=== PATIENT | male | born 1995 | race Caucasian/White ===

== ENCOUNTER 2019-11-30 17:18 | Emergency (ER) | payer BC, SELFPAY ==
--- NOTE | 2019-11-30 17:47 | ED.SKABFB ---
HPI - Skin/Abscess/Foreign Bdy General Chief complaint: Wound/Laceration Stated complaint: manasa removal Time Seen by Provider: 11/30/19 17:47 Source: patient and RN notes reviewed History of Present Illness HPI narrative: Patient is a 24-year-old male who presents the urgent care with request to have his manasa removed from his head laceration. Patient states that this is day 8 with the manasa. States that last week he dove into a marcus and hit his head on a large rock. Patient denies any loss of consciousness or other injuries. Patient states he has been washing the area twice a day as directed from the ER physician at [facility]. Patient has also been taking oral antibiotics for the laceration. Denies of any other acute complaints. No acute distress noted. Patient read the plan of care. Related Data Allergies Allergy/AdvReac Type Severity Reaction Status Date / Time No Known Allergies Allergy Mild Unverified 12/14/08 17:09 Review of Systems Review of Systems: Narrative: CONSTITUTIONAL: Denies fever, chills, or sweats. EYES: Denies visual changes, redness, or discharge. ENT: Denies rhinorrhea, congestion, sore throat, or otalgia. CARDIOVASCULAR: Denies chest pain, palpitations, or edema. RESPIRATORY: Denies cough or dyspnea. GASTROINTESTINAL: Denies abdominal pain, nausea, vomiting, or diarrhea. GENITOURINARY: Denies dysuria or hematuria. SKIN: Reports of needing staple removal to a head laceration MUSCULOSKELETAL: Denies back pain, joint pain, or myalgia. NEUROLOGIC: Denies headache, numbness, or weakness. All other systems reviewed are negative, except as documented in HPI. PMFSH Comments At the time of my signature, I reviewed and agree with the nursing past medical, surgical, social, and family history. There is no relevant family history pertinent to the patient complaint. Exam Narrative: Exam Narrative: GENERAL: This is a well-nourished, well-developed patient, in no apparent distress. HEAD: normocephalic, atraumatic. EYES: PERRL. Sclera clear/white. Vision is grossly intact. EARS: External ears normal NOSE: External nose normal with no obvious nasal discharge, nares without redness, no rhinorrhea. THROAT: Mucous membranes moist NECK: Neck supple SKIN: 4 cm half-modoc closed, healing, scabbed laceration approximated with 14 manasa to the peak of the head/forehead NEURO: awake, alert, and oriented to person, place and time. There were no obvious focal neurologic abnormalities. EXTREMITIES: No clubbing, cyanosis, or edema. Course Vital Signs Vital signs: Vital Signs Temperature 98.7 F 11/30/19 18:03 Pulse Rate 96 11/30/19 18:03 Respiratory Rate 16 11/30/19 18:03 Blood Pressure 108/65 11/30/19 18:03 Pulse Oximetry 96 11/30/19 18:03 Temperature 98.7 F 11/30/19 18:03 Pulse Rate 96 11/30/19 18:03 Respiratory Rate 16 11/30/19 18:03 Blood Pressure 108/65 11/30/19 18:03 Pulse Oximetry 96 11/30/19 18:03 Reviewed MDM - Skin/Abscess/Foreign Bdy MDM Narrative Medical decision making narrative: Advised the patient to continue washing the area as directed. Do not attempt to squeeze on the wound or remove the scab. Use prescription ointment to the laceration twice a day. Complete oral antibiotic regimen as prescribed from your initial visit. If you develop any increase in drainage from the wound, fever, nausea, redness or swelling?go to the emergency room. Follow-up with your PCP within 2 to 5 days or for worsening symptoms or failure to improve. Differential Diagnosis Differential diagnosis: Likely abscess of skin or subcutaneous tissue, cellulitis and impetigo Critical Care Time Critical Care Time Critical Care Time: No Discharge Plan Discharge Clinical Impression: Encounter for staple removal Patient Disposition: Home, Self-Care Condition: Stable Instructions: Antibiotic Form, Acute Wounds (DC) Additional Instructions: Advised the patient to continue washing the
[2019-11-30 18:03] VITALS: BP 108/65; PULSE 96; RESP 16; TEMP 37.1; O2SAT 96
== END 2019-11-30 18:13 | disposition home or self-care (01) ==
PROVIDERS: Emergency Provider Nurse Practitioner Family
DX: S01.81XA Laceration without foreign body of other part of head, initial encounter (principal); W22.8XXA Striking against or struck by other objects, initial encounter
CPT/HCPCS: 99213; G0463

== ENCOUNTER 2022-01-04 10:31 | Emergency (ER) | payer OTHER, SELFPAY ==
--- NOTE | ~2022-01-04 | XR_ITS ---
XR foot RT min 3V, XR ankle RT min 3V 01/04/2022 10:56 INDICATION: Right foot and ankle pain after injury PROCEDURE: 4 views of the right foot and 4 views right ankle COMPARISON: No prior studies for comparison. FINDINGS: Fracture, dislocation or subluxation is not identified. Lisfranc joint intact. The soft tis sues appear within normal limits. No foreign bodies are identified. IMPRESSION: 1: NO ACUTE BONE OR JOINT ABNORMALITY IDENTIFIED. Reviewed, dictated and finalized at location A. IMPRESSION: 1: NO ACUTE BONE OR JOINT ABNORMALITY IDENTIFIED.
--- NOTE | 2022-01-04 10:49 | ED_ITS ---
HPI - Extremity Injury (Lower) General Chief Complaint: Extremity Injury, Lower Stated Complaint: foot Time Seen by Provider: 01/04/22 10:38 History of Present Illness HPI Narrative: 26-year-old male presented the emergency room for evaluation of right heel pain. Patient states he jumped off a lift, which was approximately 3 feet above the ground, landing directly on his right foot. Patient states that he immediately experienced pain to his right heel. Reports pain is worse with ambulation. No radiating pain. Related Data Allergies Allergy/AdvReac Type Severity Reaction Status Date / Time No Known Allergies Allergy Mild Verified 01/04/22 10:40 Review of Systems Review of Systems: CONSTITUTIONAL: Denies fever, chills, or sweats. EYES: Denies visual changes, redness, or discharge. ENT: Denies rhinorrhea, congestion, sore throat, or otalgia. CARDIOVASCULAR: Denies chest pain, palpitations, or edema. RESPIRATORY: Denies cough or dyspnea. GASTROINTESTINAL: Denies abdominal pain, nausea, vomiting, or diarrhea. GENITOURINARY: Denies dysuria or hematuria. SKIN: Denies rash or itching. MUSCULOSKELETAL: Reports right heel pain NEUROLOGIC: Denies headache, numbness, dizziness, or weakness. PSYCHIATRIC: Denies anxiety or depression. Exam Narrative: GENERAL: Well-appearing, well-nourished, no physical limitations, and in no acute distress. HEAD: Normocephalic, atraumatic. EYES: Conjunctivae normal, PERRLA and EOMI. CHEST: Clear to auscultation. No respiratory distress. No wheezes rales or rhonchi. No tenderness. HEART: Regular rate and rhythm. No murmur heard. Normal peripheral pulses. EXTREMITIES: Right heel: Tenderness to the anterior surface, no soft tissue swelling, no acute bony abnormality, no ecchymosis SKIN: Warm, dry, no rash. No noted wounds NEURO: No focal deficits. Alert and oriented x3. MAEW. CN's II-XI intact bilaterally, normal gait PSYCH: Cooperative. Normal mood and affect. Discharge Plan Discharge Clinical Impression: Contusion of heel Patient Disposition: Home, Self-Care Condition: Stable Instructions: Antibiotic Form Additional Instructions: Elevate extremity. May take Tylenol as needed. May apply ice to affected area for 15 minutes at a time for today and tomorrow with activity for the next 4 to 5 days. Prescriptions: New naproxen 500 mg tablet 500 mg PO BID Qty: 14 0RF No Action mupirocin 2 % ointment 1 applic TOPICAL BID Qty: 15 0RF Follow-up/Referrals: PHYSICIAN,NUT SORTER OPERATOR [Primary Care Provider] - Time of Disposition: 11:28
[2022-01-04] MEDS: KETOROLAC (*BKC) 60 MG/2 ML VIAL IM (11:32)
[2022-01-04 11:39] VITALS: PULSE 80; RESP 16; O2SAT 99
== END 2022-01-04 11:40 | disposition home or self-care (01) ==
PROVIDERS: Emergency Provider Nurse Practitioner Family
DX: S90.31XA Contusion of right foot, initial encounter (principal); Y93.39 Activity, other involving climbing, rappelling and jumping off
CPT/HCPCS: 73610; 73630; 96372; 99283; J1885

== ENCOUNTER 2022-02-17 17:09 | Emergency (ER) | payer OTHER, SELFPAY ==
--- NOTE | 2022-02-17 17:14 | ED.ABDPAIN ---
HPI - Abdominal Pain General Chief Complaint: Abdominal Pain Stated Complaint: Abdominal pains Time Seen by Provider: 02/17/22 17:14 Source: patient Mode of arrival: ambulatory Limitations: no limitations History of Present Illness HPI narrative: Mr. Pool is a 26-year-old male patient presenting to the clinic today with complaints of mid epigastric abdominal pain x3 days He reports that his pain is currently an 8 or 9 out of 10. Reports that the pain is worse right after eating. He says he is in a high stress and he does smoke cigarettes. He denies any alcohol use. He has had some nausea and vomiting with this. Last bowel movement was a few days ago. He denies any blood in his vomit or tarry stools. Denies having acid reflux but states that the pain is dull aching and gnawing in the mid epigastrium area. He has originally taken some Gas-X for this mildly subsided some of the discomfort. Related Data Home Medications Medication Instructions Recorded Confirmed No Home Medications 02/17/22 02/17/22 Allergies Allergy/AdvReac Type Severity Reaction Status Date / Time No Known Allergies Allergy Mild Verified 02/17/22 17:16 Review of Systems Review of Systems: Pertinent positives per HPI. Patient denies any fever, chills, rash, headache, visual changes, dizziness, cough, runny nose, sore throat, shortness of breath, chest pain, palpitations, diarrhea, constipation, or any urinary issues. PMFSH Comments At the time of my signature, I reviewed and agree with the nursing past medical, surgical, social, and family history. There is no relevant family history pertinent to the patient complaint. Exam Narrative: General: Well-developed, well nourished, in no apparent distress. Head: Normocephalic, atraumatic. Cardio: Regular rate and rhythm, s1 and s2 normal, no murmur appreciated. Resp: Clear to auscultation bilaterally, no rhonchi, rales, wheezing or rubs. Abdomen: Soft, pliable, hyperactive bowel sounds present in all quadrants, tender to palpation over the mid epigastrium, guarding over the mid epigastrium, no organomegly, no CVAT tenderness. Course Course Emergency Course: Portions of this record may have been created with voice recognition software. Level of Care: Express Care Visit Vital Signs Vital signs: Vital signs reviewed MDM - Abdominal Pain MDM Narrative Medical decision making narrative: At the time of visit patient is resting comfortably on the exam table. I suspect the patient has a gastritis versus peptic ulcer disease. Maalox 30 mL and 15 and viscous lidocaine given in the clinic and this did not really change the patient's pain still rating it 8-9 out of 10. Offered to send him to the ED for further evaluation to rule out pancreatitis, cholecystitis, or peptic ulcer. Contacted VALERIE Guerra at [facility] and report was given for continuity of care. Differential Diagnosis Differential diagnosis: Likely abdominal pain and other (Peptic ulcer, gastritis, pancreatitis, cholecystitis) Discharge Plan Discharge Clinical Impression: Peptic ulcer, Epigastric abdominal pain, Nausea & vomiting Patient Disposition: Acute Care Hospital Condition: Stable Additional Instructions: Increase fluids and stay well-hydrated Avoid eating fatty, greasy, spicy, acidic foods Eat a bland soft diet Take Protonix and sucralfate as prescribed Take Zofran as needed for nausea/vomiting Follow-up with your PCP in 3 to 5 days if symptoms persist. Recommend follow-up for further evaluation/testing-May need to have EGD to determine Prescriptions: No Action No Home Medications Follow-up/Referrals: UNKNOWN,DOCTOR [Primary Care Provider] - Time of Disposition: 18:04 Quality NIHSS Nursing Documentation ED NIHSS nursing documentation: reviewed/agree
[2022-02-17 17:25] VITALS: BP 114/70; PULSE 77; RESP 18; TEMP 36.4; O2SAT 100
[2022-02-17] MEDS: MAG HYDROX/AL HYDROX/SIMETH 30 ML UDC PO (17:44)
[2022-02-17] MEDS: LIDOCAINE HCL 2% VISC SOLN 15 ML UDC PO (17:45)
== END 2022-02-17 18:02 | disposition short-term general hospital (02) ==
PROVIDERS: Emergency Provider Nurse Practitioner Family
DX: K27.9 Peptic ulcer, site unspecified, unspecified as acute or chronic, without hemorrhage or perforation (principal); R10.13 Epigastric pain; R11.2 Nausea with vomiting, unspecified
CPT/HCPCS: 99213; A9270; G0463

== ENCOUNTER 2022-02-17 18:17 | Emergency (ER) | payer OTHER, SELFPAY ==
--- NOTE | ~2022-02-17 | CT_ITS ---
EXAMINATION: CT abdomen pelvis w con DATE: 02/17/2022 19:18 INDICATION: upper abd pain TECHNIQUE: Computed tomography (CT) of the abdomen and pelvis was performed with 100 mL Omnipaque-350 intravenous contrast. Automated exposure control and iterative reconstruction technique were employe d. The dose-length product was 418.97 mGy-cm. COMPARISON: None. FINDINGS: Lower thorax: Unremarkable Liver: Normal. Biliary/Gallbladder: No bile duct dilation. Pancreas: No mass or duct dilation. Spleen: Normal. Adrenals:No mass. Kidneys: No suspicious mass, stone, or hydronephrosis. Left lower pole hypodensity, too small to keara acterize but most likely represents a cyst. GI tract: No small or large bowel dilation. Normal appendix. Mesentery/Peritoneum: No ascites, mass, or free air. Retroperitoneum: No mass. Pelvis: Pelvic organs are within normal limits. Soft Tissues: Soft tissues and body wall unremarkable. Bones: No acute osseous finding. IMPRESSION: No acute abdominopelvic process detected. Reviewed, dictated and finalized at location K.
[2022-02-17 18:28] VITALS: BP 122/71; PULSE 71; RESP 16; TEMP 36.8; O2SAT 99
--- NOTE | 2022-02-17 18:39 | ED.ABDPAIN ---
HPI - Abdominal Pain General Chief Complaint: Abdominal Pain Stated Complaint: abdominal pain Time Seen by Provider: 02/17/22 18:33 History of Present Illness HPI narrative: 26-year-old male presents the emergency room complaints of epigastric pain for 2 days. Patient describes the pain as a sharp stabbing pain that is not alleviated by anything. Patient states the pain is worse after eating. Denies any fevers. Is accompanied with nausea. Denies any diarrhea. Also complains of not having a bowel movement in the last 48 hours. Patient was seen in urgent care and was given a GI cocktail which did not alleviate his symptoms. Related Data Allergies Allergy/AdvReac Type Severity Reaction Status Date / Time No Known Allergies Allergy Mild Verified 02/17/22 18:30 Review of Systems Review of Systems: CONSTITUTIONAL: Denies fever, chills, or sweats. EYES: Denies visual changes, redness, or discharge. ENT: Denies rhinorrhea, congestion, sore throat, or otalgia. CARDIOVASCULAR: Denies chest pain, palpitations, or edema. RESPIRATORY: Denies cough or dyspnea. GASTROINTESTINAL: Reports abdominal pain, nausea, constipation alert and GENITOURINARY: Denies dysuria or hematuria. SKIN: Denies rash or itching. MUSCULOSKELETAL: Denies back pain, joint pain, or myalgia. NEUROLOGIC: Denies headache, numbness, dizziness, or weakness. PSYCHIATRIC: Denies anxiety or depression. Exam Narrative: GENERAL: Well-appearing, well-nourished, no physical limitations, and in no acute distress. HEAD: Normocephalic, atraumatic. EYES: Conjunctivae normal, PERRLA and EOMI. CHEST: Clear to auscultation. No respiratory distress. No wheezes rales or rhonchi. No tenderness. HEART: Regular rate and rhythm. No murmur heard. Normal peripheral pulses. ABDOMEN: Soft, periumbilical tenderness, nondistended, normal active bowel sounds. EXTREMITIES: Normal range of motion. No edema. No clubbing or cyanosis SKIN: Warm, dry, no rash. No noted wounds NEURO: No focal deficits. Alert and oriented x3. MAEW. CN's II-XI intact bilaterally, normal gait PSYCH: Cooperative. Normal mood and affect. Course Vital Signs Vital signs: Vital Signs Temperature 36.8 C 02/17/22 18:28 Pulse Rate 71 02/17/22 18:28 Respiratory Rate 16 02/17/22 18:28 Blood Pressure 122/71 02/17/22 18:28 Pulse Oximetry 99 02/17/22 18:28 Temperature 36.8 C 02/17/22 18:28 Pulse Rate 83 02/17/22 19:16 Respiratory Rate 16 02/17/22 19:16 Blood Pressure 116/72 02/17/22 19:16 Pulse Oximetry 98 02/17/22 19:16 MDM - Abdominal Pain Medical Records Medical records narrative: 26-year-old male presented the emergency room complaints of periumbilical and upper abdominal pain. Patient states that he has been nauseated and has not eaten since yesterday. Patient is complaining of nausea and constipation for [address] scan shows no acute intra-abdominal abnormality. CBC and CMP are unremarkable. Cause of patient's abdominal pain is likely constipation. Lab Data Result diagrams: 02/17/22 18:41 02/17/22 18:41 Labs: Lab Results 02/17/22 02/17/22 02/17/22 Range/Units 18:41 18:41 19:07 WBC 10.4 H (4.5-10.0) K/mm3 RBC 4.46 L (4.6-6.20) M/mm3 Hgb 14.0 (14.0-18.0) g/dL Hct 42.0 (42.0-52.0) % MCV 94.2 (80-100) fl MCH 31.4 (26-34) pg MCHC 33.3 (32-36) g/dl RDW 13.8 (11.5-14.5) % Plt Count 198 (150-375) k/mm3 MPV 9.4 (7.4-10.4) fl Immature Gran % (Auto) 0.3 (0-0.5) % Neut % (Auto) 75.5 H (45.5-73.1) % Lymph % (Auto) 17.6 L (18.3-44.2) % Tucker % (Auto) 5.9 (2.6-8.5) % Eos % (Auto) 0.4 (0-4.4) % Baso % (Auto) 0.3 (0.2-1.2) % Lymph # (Auto) 1.83 (0.9-3.2) K/mm3 Tucker # (Auto) 0.6 (0.1-0.6) K/mm3 Eos # (Auto) 0.0 (0-0.3) K/mm3 Baso # (Auto) 0.0 (0.0-0.1) K/mm3 Abs Immat Gran (auto) 0.03 (0.00-0.031) K/mm3 Absolute Neuts (auto) 7.9 H (1.3-6.7)
[2022-02-17] MEDS: SODIUM CHLORIDE 0.9% IV 1,000 ML 999 ML IV CONT (18:43)
[2022-02-17] MEDS: ONDANSETRON INJ 4 MG/2 ML VIAL IV PUSH (18:44)
[2022-02-17] MEDS: MORPHINE SULFATE (*CRX) 4 MG/ML INJ IV PUSH (18:44)
[2022-02-17 18:46] LABS: Basophils Percent Auto 0.3 % (0.2-1.2); Eosinophils Percent Auto 0.4 % (0-4.4); Immature Granulocyte Absolute 0.03 K/mm3 (0.00-0.031); Immature Granulocyte Percent A 0.3 % (0-0.5); Lymphocytes Absolute Auto 1.83 K/mm3 (0.9-3.2); Lymphocytes Percent Auto 17.6 % (18.3-44.2); Mean Corpuscular HGB Conc 33.3 g/dl (32-36); Mean Corpuscular Hemoglobin 31.4 pg (26-34); Mean Corpuscular Volume 94.2 fl (80-100); Mean Platelet Volume 9.4 fl (7.4-10.4); Monocytes Absolute Auto 0.6 K/mm3 (0.1-0.6); Monocytes Percent Auto 5.9 % (2.6-8.5); Neutrophils Absolute Auto 7.9 K/mm3 (1.3-6.7); Neutrophils Percent Auto 75.5 % (45.5-73.1); Platelet Count Result 198 k/mm3 (150-375); Red Blood Count 4.46 M/mm3 (4.6-6.20); Red Cell Distribution Width 13.8 % (11.5-14.5); White Blood Count 10.4 K/mm3 (4.5-10.0)
[2022-02-17 18:56] LABS: Alanine Aminotransferase 15 U/L (6-50); Albumin Level 4.6 g/dL (3.5-5.1); Alkaline Phosphatase 76 U/L (38-126); Anion Gap 8 mmol/L (8-16); Aspartate Amino Transferase 22 U/L (17-59); Blood Urea Nitrogen 13 mg/dL (9-20); Calcium 8.9 mg/dL (8.4-10.2); Carbon Dioxide 27 mmol/L (22-30); Chloride 103 mmol/L (98-107); Estimated CRCL calculation 115 ml/min; Estimated Glomerular Filt Rate > 60; Glucose 108 mg/dL (65-110); Lipase 29 U/L (23-300); Potassium 4.2 mmol/L (3.4-5.0); Sodium 138 mmol/L (137-145)
[2022-02-17 19:12] LABS: Appearance Urine Cloudy (Clear); Bilirubin Urine 1+ (Negative); Blood Urine Negative (Negative); Color Urine Yellow (Yellow); Glucose Urine UA Negative (Negative); Ketones Urine 1+ mg/dL (Negative); Leukocyte Esterase Ur Negative LEU/UL (Negative); Nitrate Urine Negative (Negative); Protein Urine Trace mg/dL (Negative); Specific Grav Ur 1.025 (1.001-1.035)
[2022-02-17 19:16] VITALS: BP 116/72; PULSE 83; RESP 16; O2SAT 98
[2022-02-17 19:16] LABS: Amorphous Sediment Urine Moderate; Mucus Urine Rare /lpf; WBC Urine 0-3 /hpf
--- NOTE | 2022-02-17 19:16 | PC.NURSE ---
Assumed care of pt at this time. Pt alert and upright on stretcher, updated on POC.
[2022-02-17 19:17] LABS: Add Urine Microscopic? YES
[2022-02-17 20:09] VITALS: BP 111/66; PULSE 72; RESP 18; O2SAT 98
== END 2022-02-17 20:10 | disposition home or self-care (01) ==
PROVIDERS: Emergency Medicine; Emergency Provider Nurse Practitioner Family
DX: K59.00 Constipation, unspecified (principal); R11.0 Nausea
CPT/HCPCS: 36415; 74177; 80053; 81001; 83690; 85025; 96361; 96374; 96375; 99284; J2270; J2405; J7030; Q9967

== ENCOUNTER 2023-03-18 19:04 | Emergency (ER) | payer SELFPAY ==
[2023-03-18 19:18] VITALS: BP 107/61; PULSE 97; RESP 16; TEMP 37.3; O2SAT 100
--- NOTE | 2023-03-18 19:25 | ED.SKABFB ---
HPI - Skin/Abscess/Foreign Bdy General Chief complaint: Skin/Abscess/Foreign Body Stated complaint: Bump Lt Leg Time Seen by Provider: 03/18/23 19:25 Source: patient Mode of arrival: ambulatory Limitations: no limitations History of Present Illness HPI narrative: 27-year-old male presents with complaint of red bump to left willis that started yesterday and is getting progressively worse. Concern for spider bite. Afebrile. Denies nausea vomiting diarrhea. No body aches or chills. All systems reviewed and negative except as noted above. Related Data Allergies Allergy/AdvReac Type Severity Reaction Status Date / Time No Known Allergies Allergy Mild Verified 03/18/23 19:20 Review of Systems Review of Systems: CONSTITUTIONAL: Denies fever, chills, or sweats. EYES: Denies visual changes, redness, or discharge. ENT: Denies rhinorrhea, congestion, sore throat, or otalgia. CARDIOVASCULAR: Denies chest pain, palpitations, or edema. RESPIRATORY: Denies cough or dyspnea. GASTROINTESTINAL: Denies abdominal pain, nausea, vomiting, or diarrhea. GENITOURINARY: Denies dysuria or hematuria. SKIN: Reports red bump to left willis. MUSCULOSKELETAL: Denies back pain, joint pain, or myalgia. NEUROLOGIC: Denies headache, numbness, or weakness. PSYCHIATRIC: Denies anxiety or depression. All other systems reviewed are negative, except as documented in HPI. PMFSH Comments At time of signature, agree with nursing past medical, surgical, social and family history. There is no relevant family history pertinent to the presenting complaint. Exam Narrative: GENERAL: This is a well-nourished, well-developed patient, in no apparent distress. HEAD: normocephalic, atraumatic. EYES: PERRL. Sclera clear/white. Vision is grossly intact. EARS: External ears normal NOSE: External nose normal NECK: Neck supple, non-tender without lymphadenopathy, masses or thyromegaly. CARDIOVASCULAR: Regular rate and rhythm without murmurs, gallops, or rubs. RESPIRATORY: Clear to auscultation. Breath sounds equal bilaterally. No wheezes, rales, or rhonchi. SKIN: warm, Dry, intact with no suspicious lesions or rash, good texture and turgor. Erythema and swelling to left lower willis. Warm on palpation. Erythema is approximately 4 x 6 cm. States tiny blister to Center concerning for insect bite. NEURO: awake, alert, and oriented to person, place and time. There were no obvious focal neurologic abnormalities. EXTREMITIES: No joint tenderness, effusion, or edema noted. Course Course Level of Care: Express Care Visit Vital Signs Vital signs: Vital Signs Temperature 37.3 C 03/18/23 19:18 Pulse Rate 97 03/18/23 19:18 Respiratory Rate 16 03/18/23 19:18 Blood Pressure 107/61 03/18/23 19:18 Pulse Oximetry 100 03/18/23 19:18 Oxygen Delivery Room Air 03/18/23 19:18 Temperature 37.3 C 03/18/23 19:18 Pulse Rate 97 03/18/23 19:18 Respiratory Rate 16 03/18/23 19:18 Blood Pressure 107/61 03/18/23 19:18 Pulse Oximetry 100 03/18/23 19:18 Oxygen Delivery Room Air 03/18/23 19:18 Reviewed MDM - Skin/Abscess/Foreign Bdy MDM Narrative Medical decision making narrative: Patient is aware of diagnosis, understands and agrees to treatment plan. Anticipatory guidance given. Patient agrees to follow-up as directed and is aware of reasons to seek care at the emergency department. Portions of this record may have been created with voice recognition software Differential Diagnosis Differential diagnosis: Likely insect bites Discharge Plan Discharge Clinical Impression: Infected insect bite of left lower extremity Qualifiers: Encounter type: initial encounter Qualified Code(s): S80.862A - Insect bite (nonvenomous), left lower leg, initial encounter Patient Disposition: Home, Self-Care Condition: Stable Instructions: Antibiotic Form, Insect Bite or Sting (ED) Additional Instructions: Take medications as pre
== END 2023-03-18 19:31 | disposition home or self-care (01) ==
PROVIDERS: Emergency Provider Nurse Practitioner Family
DX: S80.862A Insect bite (nonvenomous), left lower leg, initial encounter (principal); W57.XXXA Bitten or stung by nonvenomous insect and other nonvenomous arthropods, initial encounter
CPT/HCPCS: 99213; G0463

== ENCOUNTER 2023-04-02 18:56 | Emergency (ER) | payer OTHER, SELFPAY ==
[2023-04-02 19:12] VITALS: BP 109/55; PULSE 81; RESP 16; TEMP 36.9; O2SAT 97
--- NOTE | 2023-04-02 19:15 | ED.WOUNDLAC ---
HPI - Wound/Laceration General Chief Complaint: Wound/Laceration Stated Complaint: suture removal Time Seen by Provider: 04/02/23 19:15 Source: patient Mode of arrival: ambulatory Limitations: no limitations History of Present Illness HPI narrative: 27-year-old male presented for suture removal. Patient had sutures placed to his forehead 5 days ago at outside hospital after striking his head on a jeep frame. He denies any complications or signs of infection. Related Data Allergies Allergy/AdvReac Type Severity Reaction Status Date / Time No Known Allergies Allergy Mild Verified 03/18/23 19:20 Review of Systems Review of Systems: CONSTITUTIONAL: Denies body aches, fever, chills, or sweats. EYES: Denies visual changes, redness, or discharge. ENT: Denies rhinorrhea, congestion CARDIOVASCULAR: Denies chest pain, palpitations, or edema. RESPIRATORY: Denies cough or dyspnea. GASTROINTESTINAL: Denies abdominal pain, nausea, vomiting, or diarrhea. SKIN: Report sutures to forehead MUSCULOSKELETAL: Denies back pain, joint pain, or myalgia. NEUROLOGIC: Denies headache, numbness, tingling, or weakness. [facility] Past Medical History Medical History (Updated 04/02/23 @ 19:24 by Briana Arboleda, CARROLL) No pertinent past medical history Comments At time of signature, I have reviewed and agree with nursing past medical, surgical, social and family history unless otherwise noted. Please see nursing chart for further information. There is no relevant family history pertinent to the presenting complaint Exam Narrative: GENERAL: Well-appearing HEAD: Normocephalic, atraumatic. EYES: conjunctivae clear, and EOMI. ENT: Mucous membranes moist. Oropharynx without edema, erythema or lesions. NECK: Supple. No lymphadenopathy CHEST: Clear to auscultation. HEART: Regular rate and rhythm. SKIN: Warm, dry. Six sutures to irregular healing laceration to the mid forehead scab to the left lateral aspect. No surrounding erythema, induration or signs of infection. Wound is healing well, edges approximated, no drainage. NEURO: Alert and oriented x3. Course Course Emergency Course: Patient is aware of diagnosis, understands and agrees to treatment plan. Anticipatory guidance given. Patient agrees to follow-up as directed and is aware of reasons to seek care at the emergency department. Portions of this record may have been created with voice recognition software Level of Care: Express Care Visit Vital Signs Vital signs: Vital Signs Temperature 98.5 F 04/02/23 19:12 Pulse Rate 81 04/02/23 19:12 Respiratory Rate 16 04/02/23 19:12 Blood Pressure 109/55 L 04/02/23 19:12 Pulse Oximetry 97 04/02/23 19:12 Oxygen Delivery Room Air 04/02/23 19:12 Temperature 98.5 F 04/02/23 19:12 Pulse Rate 81 04/02/23 19:12 Respiratory Rate 16 04/02/23 19:12 Blood Pressure 109/55 L 04/02/23 19:12 Pulse Oximetry 97 04/02/23 19:12 Oxygen Delivery Room Air 04/02/23 19:12 Reviewed Procedures Other Procedure Procedure 1: Other Procedure: Six sutures removed from the forehead laceration. The site has healed well, edges approximate, no drainage. Advised to leave the scab intact. No signs of infection. Patient tolerated well. MDM - Wound/Laceration MDM Narrative Medical decision making narrative: Discussed physical exam findings. Discussed physical exam findings. Advised supportive measures and signs/symptoms to go to the ER. Pt is appropriate for outpt treatment and f/u. Differential Diagnosis Differential diagnosis: Likely laceration, abscess, abrasion, avulsion of skin and other (Suture removal) Discharge Plan Discharge Clinical Impression: Encounter for removal of sutures Patient Disposition: Home, Self-Care Condition: Stable Instructions: Antibiotic Form, Acute Wounds (ED) Additional Instructions: Keep the area clean and dry - gently cleanse with warm water and mild soap
== END 2023-04-02 19:27 | disposition home or self-care (01) ==
PROVIDERS: Emergency Provider Nurse Practitioner Family
DX: Z48.02 Encounter for removal of sutures (principal)
CPT/HCPCS: 99211; G0463

== ENCOUNTER 2023-06-19 09:24 | Emergency (ER) | payer OTHER, SELFPAY ==
[2023-06-19 09:38] VITALS: BP 106/63; PULSE 84; RESP 20; TEMP 36.3; O2SAT 100
--- NOTE | 2023-06-19 10:00 | ED.URI ---
HPI - URI/Sore Throat General Chief Complaint: Upper Respiratory Infection Stated Complaint: Bodyaches/Chills Time Seen by Provider: 06/19/23 09:53 Source: patient and RN notes reviewed Mode of arrival: ambulatory Limitations: no limitations History of Present Illness HPI Narrative: Patient presents today with a 2 day history of body aches, chills, headache, cough. Denies fever, shortness of breath, chest pain. He has been taking Tylenol without relief and currently rates his pain 6/10. No history of asthma or COPD. Smokes 1 pack per day. He has not been vaccinated against COVID. Related Data Home Medications Medication Instructions Recorded Confirmed No Home Medications 06/19/23 06/19/23 Allergies Allergy/AdvReac Type Severity Reaction Status Date / Time No Known Allergies Allergy Mild Verified 06/19/23 09:34 Review of Systems Review of Systems: CONSTITUTIONAL: Denies fever, or sweats.+ body aches, chills EYES: Denies visual changes, redness, or discharge. ENT: Denies rhinorrhea, congestion, sore throat, or otalgia. CARDIOVASCULAR: Denies chest pain, palpitations, or edema. RESPIRATORY: Denies dyspnea.+ cough GASTROINTESTINAL: Denies abdominal pain, nausea, vomiting, or diarrhea. GENITOURINARY: Denies dysuria or hematuria. SKIN: Denies rash, itching, or wounds. MUSCULOSKELETAL: Denies back pain, joint pain, or myalgia. NEUROLOGIC: Denies numbness, tingling, or weakness.+ headache PSYCH: Denies depression or anxiety. PMFSH Past Medical History Medical History No pertinent past medical history Social History Social History (Updated 06/19/23 @ 10:02 by Yadira Saravia, [facility], ) Smoking packs per day: 1 Smoking cigarettes per day: 20.0 Smoking status: Current every day smoker Tobacco type: cigarettes Comments At time of signature, I have reviewed and agree with nursing past medical, surgical, social and family history unless otherwise noted. Please see nursing chart for further information. There is no relevant family history pertinent to the presenting complaint Exam Narrative: GENERAL: Well-appearing, well-nourished, and in no acute distress. HEAD: Normocephalic, atraumatic. EYES: EOMI. No redness or drainage. Conjunctivae normal. ENT: Mucous membranes pink and moist. Nares clear. No rhinorrhea. TMs normal bilaterally. Throat mildly erythematous without edema or exudate. Uvula midline. NECK: Normal AROM. Supple. No lymphadenopathy. CHEST: No respiratory distress. Clear to auscultation. HEART: Regular rate and rhythm. No murmur appreciated. EXTREMITIES: Normal range of motion. No edema. SKIN: Warm, dry, no rash. Capillary refill normal. Normal skin turgor. NEURO: No focal deficits. Alert and oriented x3. Gait steady. PSYCH: Normal affect. No signs of depression or anxiety. Course Course Level of Care: Express Care Visit Vital Signs Vital signs: Vital Signs Temperature 97.4 F L 06/19/23 09:38 Pulse Rate 84 06/19/23 09:38 Respiratory Rate 20 06/19/23 09:38 Blood Pressure 106/63 06/19/23 09:38 Pulse Oximetry 100 06/19/23 09:38 Oxygen Delivery Room Air 06/19/23 09:38 Temperature 97.4 F L 06/19/23 09:38 Pulse Rate 84 06/19/23 09:38 Respiratory Rate 20 06/19/23 09:38 Blood Pressure 106/63 06/19/23 09:38 Pulse Oximetry 100 06/19/23 09:38 Oxygen Delivery Room Air 06/19/23 09:38 Reviewed MDM - URI/Sore Throat MDM Narrative Medical decision making narrative: COVID-19 positive. Patient's respiratory exam is normal. Discussed when to go to the ER. No prescription medications indicated at this time. Anticipatory guidance given. Differential Diagnosis Differential diagnosis: Likely upper respiratory infection, viral infection, influenza and other (COVID-19) Lab Data Attestation: I reviewed the patient's lab results. Labs: Lab Results 06/19/23 Range
== END 2023-06-19 10:07 | disposition home or self-care (01) ==
PROVIDERS: Emergency Provider Nurse Practitioner
DX: U07.1 COVID-19 (principal); F17.210 Nicotine dependence, cigarettes, uncomplicated
CPT/HCPCS: 87426; 87804; 99213; C9803; G0463

== ENCOUNTER 2024-04-29 09:10 | Emergency (ER) | payer SELFPAY ==
[2024-04-29 09:50] VITALS: BP 117/70; PULSE 85; RESP 17; TEMP 36.7; O2SAT 99
--- NOTE | 2024-04-29 10:16 | ED.URI ---
HPI - URI/Sore Throat General Chief Complaint: Upper Respiratory Infection Stated Complaint: sinus infection Time Seen by Provider: 04/29/24 10:17 Source: patient and RN notes reviewed Mode of arrival: ambulatory Limitations: no limitations History of Present Illness HPI Narrative: 29 y/o male presented for c/o headache, sinus pressure and drainage x4 days. Taking mucinex. Denies cough, shortness of breath, wheezing nausea, vomiting, lethargy or fever. MD elicited complaint: cough Related Data Allergies Allergy/AdvReac Type Severity Reaction Status Date / Time No Known Allergies Allergy Mild Verified 04/29/24 10:09 Review of Systems Review of Systems: CONSTITUTIONAL: Denies malaise, chills, sweats, fever EYES: Denies visual changes, redness, or discharge ENT: Reports rhinorrhea, congestion, sinus pain, otalgia, sore throat CARDIOVASCULAR: Denies chest pain, palpitations, edema RESPIRATORY: Reports post nasal drainage. Denies dyspnea GASTROINTESTINAL: Denies abdominal pain, nausea, vomiting, diarrhea PMFSH Past Medical History Medical History No pertinent past medical history Social History Social History Smoking packs per day: 1 Smoking cigarettes per day: 20.0 Smoking status: Current every day smoker Tobacco type: cigarettes Exam Narrative: GENERAL: mildly Ill-appearing, EYES: conjunctivae clear ENT: Mucous membranes moist. Left TM pearly nunn with dull light reflex; right TM erythematous, intact; canal not erythematous, no drainage, no tragal tenderness. Oropharynx erythematous without lesions or exudate, no drooling, no hoarseness, no trismus, uvula midline. No tripod positioning, muffled voice, soft palate or pharyngeal wall bulging CHEST: Clear to auscultation, breath sounds equal. No wheezing, rhonchi, rales, or stridor. No respiratory distress, speaks in full sentences. HEART: Regular rate and rhythm. No murmur heard. SKIN: Warm, dry NEURO: Alert and oriented x3. PSYCH: Normal mood and affect Course Course Emergency Course: Patient is aware of diagnosis, understands and agrees to treatment plan. Anticipatory guidance given. Patient agrees to follow-up as directed and is aware of reasons to seek care at the emergency department. Portions of this record may have been created with voice recognition software Level of Care: Express Care Visit Vital Signs Vital signs: Vital Signs Temperature 98.0 F 04/29/24 09:50 Pulse Rate 85 04/29/24 09:50 Respiratory Rate 17 04/29/24 09:50 Blood Pressure 117/70 04/29/24 09:50 Pulse Oximetry 99 04/29/24 09:50 Oxygen Delivery Room Air 04/29/24 09:50 Temperature 98.0 F 04/29/24 09:50 Pulse Rate 85 04/29/24 09:50 Respiratory Rate 17 04/29/24 09:50 Blood Pressure 117/70 04/29/24 09:50 Pulse Oximetry 99 04/29/24 09:50 Oxygen Delivery Room Air 04/29/24 09:50 reviewed MDM - URI/Sore Throat MDM Narrative Medical decision making narrative: Discussed physical exam findings likely viral URI. Pt will only start abx if sx persist 7-10 days. v/u. Advised supportive measures and signs/symptoms to go to the ER. Pt is appropriate for outpt treatment and f/u. Differential Diagnosis Differential diagnosis: Likely upper respiratory infection, sinusitis, viral infection, bronchitis, influenza and pharyngitis Discharge Plan Discharge Clinical Impression: Upper respiratory infection, Otitis media Patient Disposition: Home, Self-Care Condition: Stable Instructions: Antibiotic Form, Ear Infection (ED) Additional Instructions: Take antibiotics as directed. if symptoms are due to a viral illness, it is not treated with antibiotics. Viral symptoms can be present for up to 10-14 days. Recommendations: antihistamine such as Benadryl, Zyrtec or Jackie for sinus congestion along with Flonase nasal spray, 1 spray in each nostril once daily until symptoms improve Saline nasal mist as needed for congestion Symptomatic treatment includes: rest, fluids, and increase humidity of the air at home. Tylenol 1000mg every 8 hours as needed to reduce fever, pain Please schedule a follow-up visit with your personal physician If your symptoms persist, change or worsen significantly, go to the emergency department for further evaluation. Prescriptions: New amoxicillin-pot clavulanate 875-125 mg tablet 1 tablet PO Q12H 7 Days Qty: 14 0RF Follow-up/Referrals: PHYSICIAN,[facility] [Primary Care Provider] -
== END 2024-04-29 10:30 | disposition home or self-care (01) ==
PROVIDERS: Emergency Provider Nurse Practitioner Family
DX: J06.9 Acute upper respiratory infection, unspecified (principal); H66.91 Otitis media, unspecified, right ear; F17.210 Nicotine dependence, cigarettes, uncomplicated
CPT/HCPCS: 99213; G0463